=== PATIENT | female | born 1960 | race Caucasian/White ===

== ENCOUNTER 2024-02-11 08:49 | Outpatient (AMB) | payer MEDICARE, BC, SELFPAY ==
--- NOTE | 2024-02-11 08:50 | A.OFFPC_ITS ---
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 She recently moved to [facility]. She requested her medical records which have not yet been sent. Tried to obtain [employer] code today however would not process CV: On atorvastatin 20 mg daily. GI: On omeprazole 40mg daily. Stable COPD is stable on prn albuterol which she seldom has used. She does request referral to pulmonary Mammo 01/2024 Colonoscopy 2019 ROS CONSTITUTIONAL: Denies weight loss, fever and chills. HEENT: Denies changes in vision and hearing. RESPIRATORY: Denies SOB and cough. CV: Denies palpitations and CP GI: Denies abdominal pain, nausea, vomiting and diarrhea. : Denies dysuria and urinary frequency. MSK: Denies new myalgia and joint pain. SKIN: Denies rash and pruritus. NEUROLOGICAL: Denies headache PSYCHIATRIC: Denies recent changes in mood. PHYSICAL EXAM: GENERAL: Alert and oriented x 3. NAD EYES: EOMI. Anicteric. HENT: Moist mucous membranes. No scleral icterus. No cervical lymphadenopathy. LUNGS: Clear to auscultation bilaterally. CARDIOVASCULAR: Regular rate and rhythm. No murmur. No JVD. ABDOMEN: Soft, non-tender +bs EXTREMITIES: No edema. Non-tender. SKIN: No rashes or lesions. Warm. NEUROLOGIC: No focal neurological deficits. CN II-XII grossly intact PSYCHIATRIC: Cooperative. Appropriate mood and affect [facility] Surgical History H/O colonoscopy (~2019) History of carpal tunnel surgery History of lumpectomy of right breast (~2010) History of hysterectomy (~2015) H/O Spinal surgery (~2020) Family History Mother Breast cancer Father Diabetes Social History Household Members: None Housing: House Alcohol intake: current Alcohol intake frequency: a few times a month Patient Tobacco Use Status: Former Tobacco user Cigarettes Per Day: 10 Years Smoked: 50 e-Cigarette/Vaping Use: Never Used service: Yes Current occupational status: retired Cognitive needs: No Hearing needs: No Vision needs: No Questionnaire PHQ-9 Over the last 2 weeks, how often have you been bothered by any of the following problems? 1. Little interest or pleasure in doing things: not at all 2. Feeling down, depressed, or hopeless: not at all 3. Trouble falling or staying asleep, or sleeping too much: not at all 4. Feeling tired or having little energy: not at all 5. Poor appetite or overeating: not at all 6. Feeling bad about yourself - or that you are a failure or have let yourself or your family down: not at all 7. Trouble concentrating on things, such as reading the newspaper or watching television: not at all 8. Moving or speaking so slowly that other people could have noticed. Or the opposite - being so fidgety or restless that you have been moving around a lot more than usual: not at all 9. Thoughts that you would be better off or of hurting yourself in some way: not at all Total score: 0 Depression Screening Interpretation: Negative (neg) Depression Screening Done: Yes 01943 - PHQ-9 Billing: Yes Source: Developed by Drs. Walter Bajwa, Cheri Griffith, Pranav Tong and colleagues, with an educational felicia from [employer]. Thrive Questionnaire Date Thrive assessed: 02/11/24 I am a: Patient What is your living situation today?: I have a steady place to live Within the past 12 months, did the food you bought not last and you didn't have the money to get more?: Never true Within the past 12 months, did you worry whether your food would run out before you got money to buy more?: Never true Do you have trouble paying for medicines?: No Do you have trouble getting transportation to medical appointments?: No Do you have trouble paying your heating and electricity bill?: No Do you have trouble taking care of your child, family member or friend?: No Do you have trouble with day-to-day activities such as bathing, preparing meals, shopping, managing finances, etc.?: No Are you currently unemployed and looking for a job?: No Are you interested in more education?: No Please select the resources that you would like help with: None Currently or been in a relationship where the following occur: No concerns reported THRIVE Score: 0 AUDIT C Alcohol Use Questionnaire (AUDIT-C) 1. How often do you have a drink containing alcohol?: Monthly or less 2. How many drinks containing alcohol do you have on a typical day when you are drinking?: 1 or 2 3. How often do you have six or more drinks on one occasion?: Never Total Score: 1 INDU-7 AMB Questionnaire INDU-7 Date INDU - 7 assessed: 02/11/24 Feeling nervous, anxious, or on edge: 0 = Not at all Not being able to stop or control worryin = Not at all Worrying too much about different things: 0 = Not at all Trouble relaxin = Not at all Being so restless that it is hard to sit still: 0 = Not at all Feeling afraid as if something awful might happen: 0 = Not at all Source: Developed by Drs. Walter Bajwa, Cheri Griffith, Pranav Tong and colleagues, with an educational felicia from [employer]. Physical exam (Primary Care) Vital Signs: Last Vital Signs Pulse 65 02/11/24 08:51 BP 132/84 02/11/24 08:51 Pulse Ox 96 02/11/24 08:51 Oxygen Delivery Method Room Air 02/11/24 08:51 BMI result Body Mass Index 25.7 Tobacco/Smoking Status: Tobacco use Status Tobacco use date assessed 02/11/24 02/11/24 09:01 Patient Tobacco Use Status Former Tobacco user 02/11/24 09:01 e-Cigarette/Vaping Use Never Used 02/11/24 09:01 PHQ-9: PHQ-9 Score PHQ-9: Total score 0 02/11/24 09:01 Depression Screening Interpretation: Negative (neg) Thrive Assessment: Date of Thrive Assessment Date Thrive assessed 02/11/24 02/11/24 09:01 Currently or been in a relationship where the following occur: No concerns reported Assessment and Plan Assessment & Plan (1) Encounter to establish care: Code(s): Z76.89 - Persons encountering health services in other specified circumstances Plan: 63 y/o to establish care. Past medical, surgical, social and family history revewed. (2) Hyperlipidemia: Code(s): E78.5 - Hyperlipidemia, unspecified Qualifiers: Hyperlipidemia type: unspecified Qualified Code(s): E78.5 - Hyperlipidemia, unspecified (3) COPD (chronic obstructive pulmonary disease): Code(s): J44.9 - Chronic obstructive pulmonary disease, unspecified Qualifiers: COPD type: emphysema Emphysema type: other Qualified Code(s): J43.8 - Other emphysema Plan: referral placed to pulm Orders: Orders Comprehensive Met. Panel Today E78.5 - Hyperlipidemia, unspecified, R73.09 - Other abnormal glucose, Z13.0 - Encounter for screening for diseases of the blood and blood-forming organs and certain disorders involving the immune mechanism, Z13.228 - Encounter for screening for other metabolic disorders Lipid Panel Today E78.5 - Hyperlipidemia, unspecified, R73.09 - Other abnormal glucose, Z13.0 - Encounter for screening for diseases of the blood and blood- forming organs and certain disorders involving the immune mechanism, Z13.228 - Encounter for screening for other metabolic disorders Complete Blood Count Auto Diff Today E78.5 - Hyperlipidemia, unspecified, R73.09 - Other abnormal glucose, Z13.0 - Encounter for screening for diseases of the blood and blood-forming organs and certain disorders involving the immune mechanism, Z13.228 - Encounter for screening for other metabolic disorders Hemoglobin A1c Today E78.5 - Hyperlipidemia, unspecified, R73.09 - Other abnormal glucose, Z13.0 - Encounter for screening for diseases of the blood and blood-forming organs and certain disorders involving the immune mechanism, Z13.228 - Encounter for screening for other metabolic disorders Referrals Pulmonology Referral J44.9 - Chronic obstructive pulmonary disease, unspecified Medications: New albuterol sulfate 90 mcg/actuation (Ventolin HFA) 2 inhalations inhalation Q4H PRN 8.5 grams 3RF shortness of breath or wheezing omeprazole 40 mg PO DAILY 90 caps 3RF Coding Level of Care Code New Pt Level 4 (42628) Complex EM visit Add On G2211 Diagnoses Encounter to establish care Z76.89 Hyperlipidemia, unspecified hyperlipidemia type E78.5 Hyperlipidemia type: unspecified Other emphysema J43.8 COPD type: emphysema Emphysema type: other
[2024-02-11 08:51] VITALS: BP 132/84; PULSE 65; O2SAT 96; BMI 25.7
== END 2024-02-11 09:36 | disposition home or self-care (01) ==
PROVIDERS: PCP Internal Medicine; Visit Provider Internal Medicine
DX: Z76.89 Persons encountering health services in other specified circumstances (principal); E78.5 Hyperlipidemia, unspecified; J43.8 Other emphysema

== ENCOUNTER → 2024-02-11 08:49 | Outpatient (BNVA) | payer MEDICARE, BC, SELFPAY | PROVIDERS: Visit Provider Internal Medicine | DX: Z76.89 Persons encountering health services in other specified circumstances (principal); E78.5 Hyperlipidemia, unspecified; J43.8 Other emphysema | CPT/HCPCS: 96127; 99202 ==

== ENCOUNTER 2024-02-11 09:53 | Outpatient (REF) | payer MEDICARE, BC, SELFPAY ==
[2024-02-11 11:48] LABS: MANUAL DIFF FLAG NO
[2024-02-11 12:00] LABS: Basophils Absolute Auto 0.1 X10*3/uL (0.0-0.2); Basophils Percent Auto 1.8 % (0-2); Eosinophils Absolute Auto 0.1 X10*3/uL (0.0-0.4); Eosinophils Percent Auto 1.5 % (0-4); Hematocrit 45.2 % (37.0-47.0); Hemoglobin 15.3 g/dl (12.0-16.0); Imm Gran Abs Auto 0.03 X10*3/uL (0.00-0.03); Imm Gran Pct Auto 0.5 % (0.0-0.4); Lymphocytes Absolute Auto 2.3 X10*3/uL (1.2-4.9); Lymphocytes Percent Auto 35.4 % (20-40); Mean Corpuscular HGB Conc 33.8 g/dl (31.0-35.0); Mean Corpuscular Hemoglobin 31.2 pg (27.0-33.0); Mean Corpuscular Volume 92.2 fL (80.0-98.0); Monocytes Absolute Auto 0.7 X10*3/uL (0.1-1.2); Monocytes Percent Auto 10.3 % (2-11); Neutrophils Absolute Auto 3.3 x10*3/uL (2.0-8.3); Neutrophils Percent Auto 50.5 % (45-73); Platelet Count 201 X10*3/uL (160-400); Red Cell Distribution Width 13.2 % (11.0-16.0); White Blood Count 6.5 X10*3/uL (4.8-10.8)
[2024-02-11 12:23] LABS: Alanine Aminotransferase 22 U/L (0-31); Albumin Level 4.3 g/dL (3.5-5.0); Alkaline Phosphatase 108 U/L (39-117); Anion Gap 11 (12-20); Aspartate Amino Transferase 18 U/L (5-31); Bilirubin Total 0.5 mg/dL (0.0-1.0); Blood Urea Nitrogen 17 mg/dL (9-16); Calcium 9.7 mg/dL (8.4-10.2); Carbon Dioxide 26 mmol/L (22-29); Chloride 107 mmol/L (96-108); Cholesterol 184 mg/dL (<200); Estimated Glomerular Filt Rate > 60; Glucose Random 96 mg/dL (60-115); HDL Cholesterol 55 mg/dL (>40); LDL Cholesterol Calculated 95 mg/dL (<100); Potassium 4.2 mmol/L (3.3-5.1); Sodium 140 mmol/L (135-145); Total Protein 7.2 g/dL (6.5-8.0); Triglycerides 170 mg/dL (<150)
[2024-02-11 12:24] LABS: Estimated Average Glucose 117 mg/dL; Hemoglobin A1c % 5.7 % (<6.0)
== END 2024-02-11 09:54 | disposition home or self-care (01) ==
LOC: HO.WFDLDS 09:53
PROVIDERS: Visit Provider Internal Medicine
DX: R73.09 Other abnormal glucose (principal); Z13.0 Encounter for screening for diseases of the blood and blood-forming organs and certain disorders involving the immune mechanism; E78.5 Hyperlipidemia, unspecified; Z13.228 Encounter for screening for other metabolic disorders
CPT/HCPCS: 36415; 80053; 80061; 83036; 85025

== ENCOUNTER 2024-03-18 10:13 | Outpatient (AMB) | payer MEDICARE, BC, SELFPAY ==
[2024-03-18 10:15] VITALS: BP 124/68; PULSE 74; O2SAT 96; BMI 25.9
--- NOTE | 2024-03-18 10:15 | A.OFFVIS_ITS ---
Vital Signs 03/18/24 10:15 Height 5 ft 2 in Weight 141 lb 6 oz BMI 25.9 BP 124/68 Blood Pressure Location Rt brachial Position Sitting Pulse 74 Pulse Source Pulse Oximeter Pulse Oximetry (%) 96 Oxygen Delivery Method Room Air Intake Visit Reasons: COPD/Emphysema Allergies codeine Allergy (Intermediate, Verified 03/18/24 10:17) Rash HPI HPI COPD/Emphysema: Details: Mercedez Blanco is pleasant 63 year old female, current minimal smoker with 25+ pyh, with underlying COPD, emphysema, HLD and GERD. She was referred by PCP for pulmonary evaluation. She was previously under the care of pulmonary while living in [place] however has been without care for over one year. Prior she was using Anoro with good effect however it was not financially feasible and has not been on any inhalers since moving. She also had a LLL 5-6 mm pulmonary nodule that was being followed annually, last CT 05/05. She reports dyspnea with moderate exertion such as stairs and hills. She is quite active using a stationary bike 3x/week as well as walking frequently. She denies cough, wheezing or chest tightness. She does note occasionally orthopnea. Denies BLE edema or PND. Prior echo from 2020 revealed LVEF 60-65%, unable to determine RVSP, trace valvular regurgitation. She denies h/o asthma. She denies pertinent family history. She reports mild seasonal allergies. She denies any prolonged occupational exposures. [facility] Surgical History H/O colonoscopy (~2019) History of carpal tunnel surgery History of lumpectomy of right breast (~2010) History of hysterectomy (~2015) H/O Spinal surgery (~2020) Family History Mother Breast cancer Father Diabetes Social History Household Members: None Housing: House Alcohol intake: current Alcohol intake frequency: a few times a month Patient Tobacco Use Status: Former Tobacco user Cigarettes Per Day: 10 Years Smoked: 50 e-Cigarette/Vaping Use: Never Used service: Yes Current occupational status: retired Cognitive needs: No Hearing needs: No Vision needs: No Review of Systems Const Denies chills, Denies excessive sweating, Denies fever(s), Denies headache(s) and Denies night sweats Eyes Denies dry eyes, Denies irritation and Denies itchy eyes ENT Reports Normal hearing present, Denies headache(s), Denies nasal congestion, Denies nasal discharge, Denies post nasal drip and Denies sore throat Card Denies chest pain, Denies chest pain at rest, Denies chest pain with activity, Denies claudication, Denies leg edema, Denies orthopnea and Denies paroxysmal nocturnal dyspnea Resp Denies chest congestion, Denies cough, Denies excessive phlegm production, Denies pain on inspiration, Denies pain with cough, Denies stridor and Denies wheezing Musc Denies myalgias Neuro Reports Normal hearing present and Denies headache(s) Endo Denies excessive sweating Yaniv/Lymph Denies lymphadenopathy Aller/Immun Denies itchy eyes, Denies seasonal rhinorrhea and Denies wheezing Physical Exam Vital Signs: Last Vital Signs Pulse 74 03/18/24 10:15 BP 124/68 03/18/24 10:15 Pulse Ox 96 03/18/24 10:15 Oxygen Delivery Method Room Air 03/18/24 10:15 BMI result Body Mass Index 25.9 Const General: cooperative, healthy appearing, comfortable, no acute distress, well developed and alert Orientation/consciousness: patient oriented x3 Limitations: no limitations HEENT Head: Yes normal to inspection, Yes normocephalic and Yes atraumatic Ears: hearing grossly normal bilaterally and external ears normal Eyes General: appearance normal, both eyes and all related structures Eyelids: Yes eyelids normal Sclerae: sclerae normal EOM: EOMs intact bilaterally Neck Neck: Yes normal visual inspection and Yes no lymphadenopathy Lymphatic: no lymphadenopathy noted Chest Chest palpation & inspection: normal inspection of the chest Resp Effort & Inspection: normal respiratory effort, able to speak in complete sentences, no audible wheezes, no cough, no stridor, not tachypneic, no tripod positioning and no use of accessory muscles Auscultation: clear to auscultation bilaterally Cardio Jugular venous distension: no JVD Rate: regular rate Rhythm: regular rhythm Skin Other: warm, dry General skin exam: no rashes or lesions noted Neuro General: patient oriented x3 Cranial nerves: Yes Normal hearing present Cognition (Neuro): normal cognition Gait exam (Neuro): Normal gait present Extrem General: Yes normal to inspection, Yes capillary refill normal, Yes no clubbing, cyanosis or edema and Yes no pedal edema Psych Appearance: grossly normal and well kempt Speech and movement: Normal speech and movement present and Clear speech present Affect: normal affect Attitude: cooperative Thought process: Normal thought process present Thought content: Normal thought content present Insight: Good insight present (Psych) Judgement: Good judgement present (Psych) Assessment & Plan Assessment & Plan (1) COPD (chronic obstructive pulmonary disease): Code(s): J44.9 - Chronic obstructive pulmonary disease, unspecified Category: Medical Qualifiers: COPD type: emphysema Emphysema type: other Qualified Code(s): J43.8 - Other emphysema (2) Pulmonary nodule: Code(s): R91.1 - Solitary pulmonary nodule Category: Medical (3) Nicotine dependence, cigarettes, uncomplicated: Code(s): F17.210 - Nicotine dependence, cigarettes, uncomplicated Category: Medical Plan Mercedez Blanco's symptoms are likely related to underlying COPD. Prior PFT revealed mild obstructive defect with moderate decrease in DLCO. Will trial Symbicort. Discussed importance of good oral hygiene to prevent thrush. Will send for repeat chest CT to assess stability of LLL pulmonary nodule. Discussed smoking cessation, patient continues to smoke however minimally. All questions were answered and patient is in agreement of plan. Will follow up in 6-8 weeks or sooner if needed. Orders: Orders CT chest wo IV con Today F17.210 - Nicotine dependence, cigarettes, uncomplicated, R91.1 - Solitary pulmonary nodule Medications: New budesonide-formoterol 80-4.5 mcg/actuation (Symbicort) 2 puffs inhalation Q12H 10.2 grams 6RF Coding Level of Care Code New Pt Level 4 (14508) Diagnoses Other emphysema J43.8 COPD type: emphysema Emphysema type: other Pulmonary nodule R91.1 Nicotine dependence, cigarettes, uncomplicated F17.210
== END 2024-03-18 10:51 | disposition home or self-care (01) ==
LOC: HO.HPSW 10:13
PROVIDERS: PCP Internal Medicine; Referring Provider Internal Medicine; Visit Provider Nurse Practitioner Family
DX: J43.8 Other emphysema (principal); R91.1 Solitary pulmonary nodule; F17.210 Nicotine dependence, cigarettes, uncomplicated
CPT/HCPCS: 99204

== ENCOUNTER → 2024-03-18 10:13 | Outpatient (BNVA) | payer MEDICARE, BC, SELFPAY | PROVIDERS: PCP Internal Medicine; Referring Provider Internal Medicine; Visit Provider Nurse Practitioner Family | DX: J43.8 Other emphysema (principal); R91.1 Solitary pulmonary nodule; F17.210 Nicotine dependence, cigarettes, uncomplicated | CPT/HCPCS: 99202 ==

== ENCOUNTER 2024-05-09 14:54 | Outpatient (REF) | payer MEDICARE, BC, SELFPAY ==
--- NOTE | ~2024-05-09 | CT_ITS ---
CLINICAL HISTORY: R91.1 - Solitary pulmonary nodule CT chest without IV contrast. COMPARISON: CT chest dated 04/25/23 at 15:01 EST FINDINGS: Visualized thyroid is unremarkable. No supraclavicular or axillary lymphadenopathy. Bilateral breast implants present. Ascending aorta and main pulmonary artery are normal in caliber. Small pericardial effusion, stable. Normal esophagus. No mediastinal lymphadenopathy. No pleural effusion. No consolidation. Mild osteophyte fibrosis along the medial right lung base, stable. Moderate upper lobe predominant centrilobular emphysema. Trachea and central airways are clear. No significant bronchial wall thickening. No bronchiectasis. No pulmonary nodule identified. Visualized portions of the upper abdomen are unremarkable. Flowing marginal osteophytes present along the midthoracic spine. Partially visualized anterior cervical fusion hardware. No acute fracture or suspicious bone lesion identified. IMPRESSION: 1. No acute intrathoracic findings. No pulmonary nodule identified. This document has been electronically signed by: Jericho Abernathy MD on 05/12/2024 16:30:08
== END 2024-05-09 14:55 | disposition home or self-care (01) ==
LOC: HO.CT 14:54
PROVIDERS: PCP Internal Medicine; Visit Provider Nurse Practitioner Family
DX: R91.1 Solitary pulmonary nodule (principal); F17.210 Nicotine dependence, cigarettes, uncomplicated
CPT/HCPCS: 71250

== ENCOUNTER → 2024-05-09 14:55 | Outpatient (BNV) | payer MEDICARE, BC, SELFPAY | PROVIDERS: PCP Internal Medicine; Visit Provider Radiology Diagnostic Radiology | DX: J43.2 Centrilobular emphysema (principal); I31.39 Other pericardial effusion (noninflammatory); Z98.82 Breast implant status | CPT/HCPCS: 71250 ==

== ENCOUNTER 2024-05-16 09:42 | Outpatient (AMB) | payer BC, MEDICARE, SELFPAY ==
--- NOTE | 2024-05-16 09:45 | MHC.OFFVIS ---
Vital Signs 05/16/24 09:46 Height 5 ft 2 in Weight 144 lb BMI 26.3 BP 110/78 Blood Pressure Location Rt brachial Position Sitting Pulse 84 Pulse Source Pulse Oximeter Pulse Oximetry (%) 98 Oxygen Delivery Method Room Air Intake Visit Reasons: copd/emphysema Allergies codeine Allergy (Intermediate, Verified 05/16/24 09:49) Rash HPI HPI copd/emphysema: Details: Mercedez Blanco is pleasant 63 year old female, current minimal smoker with 25+ pyh, with underlying COPD, emphysema, HLD and GERD. At the last visit, she was started on Symbicort 80mcg with good effect. At baseline, she denies any cough, wheezing,. dyspnea or chest tightness and continues to be quite active. She denies any need for albuterol MDI. She also had a LLL 5-6 mm pulmonary nodule that was being followed annually, last CT 05/05 and presents today for review of repeat chest CT. She denies any visits to urgent care or hospitalizations related to respiratory distress since the last visit. She does note that over the last two days she has developed sinus symptoms, with productive cough that started this am, clear sputum and no change in dyspnea, wheezing or chest tightness. She denies chest congestion, fever or chills. She was exposed to her sister on [place] who had an URI. [facility] Surgical History H/O colonoscopy (~2019) History of carpal tunnel surgery History of lumpectomy of right breast (~2010) History of hysterectomy (~2015) H/O Spinal surgery (~2020) Family History Mother Breast cancer Father Diabetes Social History Household Members: None Housing: House Alcohol intake: current Alcohol intake frequency: a few times a month Patient Tobacco Use Status: Former Tobacco user Cigarettes Per Day: 10 Years Smoked: 50 e-Cigarette/Vaping Use: Never Used service: Yes Current occupational status: retired Cognitive needs: No Hearing needs: No Vision needs: No Review of Systems Const Denies chills, Denies excessive sweating, Denies fever(s), Reports headache(s) and Denies night sweats Eyes Denies dry eyes, Denies irritation and Denies itchy eyes ENT Reports Normal hearing present, Reports headache(s), Denies nasal congestion, Denies nasal discharge, Denies post nasal drip, Reports sinus pressure and Denies sore throat Card Denies chest pain, Denies chest pain at rest, Denies chest pain with activity, Denies claudication, Denies leg edema, Denies dyspnea, Denies dyspnea on exertion, Denies orthopnea and Denies paroxysmal nocturnal dyspnea Resp Denies chest congestion, Denies excessive phlegm production, Denies pain on inspiration, Denies pain with cough, Denies dyspnea, Denies dyspnea on exertion, Denies stridor and Denies wheezing Musc Denies myalgias Neuro Reports Normal hearing present and Reports headache(s) Endo Denies excessive sweating Yaniv/Lymph Denies lymphadenopathy Aller/Immun Denies itchy eyes, Denies seasonal rhinorrhea and Denies wheezing Physical Exam Vital Signs: BMI result Body Mass Index 26.3 Const General: cooperative, healthy appearing, comfortable, no acute distress, well developed and alert Orientation/consciousness: patient oriented x3 Limitations: no limitations HEENT Head: Yes normal to inspection, Yes normocephalic and Yes atraumatic Ears: hearing grossly normal bilaterally and external ears normal Eyes General: appearance normal, both eyes and all related structures Eyelids: Yes eyelids normal Sclerae: sclerae normal EOM: EOMs intact bilaterally Neck Neck: Yes normal visual inspection and Yes no lymphadenopathy Lymphatic: no lymphadenopathy noted Chest Chest palpation & inspection: normal inspection of the chest Resp Effort & Inspection: normal respiratory effort, able to speak in complete sentences, no audible wheezes, no cough, no stridor, not tachypneic, no tripod positioning and no use of accessory muscles Auscultation: clear to auscultation bilaterally Cardio Jugular venous distension: no JVD Rate: regular rate Rhythm: regular rhythm Skin Other: warm, dry General skin exam: no rashes or lesions noted Neuro General: patient oriented x3 Cranial nerves: Yes Normal hearing present Cognition (Neuro): normal cognition Gait exam (Neuro): Normal gait present Extrem General: Yes normal to inspection, Yes capillary refill normal, Yes no clubbing, cyanosis or edema and Yes no pedal edema Psych Appearance: grossly normal and well kempt Speech and movement: Normal speech and movement present and Clear speech present Affect: normal affect Attitude: cooperative Thought process: Normal thought process present Thought content: Normal thought content present Insight: Good insight present (Psych) Judgement: Good judgement present (Psych) Assessment & Plan Assessment & Plan (1) COPD (chronic obstructive pulmonary disease): Code(s): J44.9 - Chronic obstructive pulmonary disease, unspecified Category: Medical Qualifiers: COPD type: emphysema Emphysema type: other Qualified Code(s): J43.8 - Other emphysema (2) Pulmonary nodule: Code(s): R91.1 - Solitary pulmonary nodule Category: Medical (3) Nicotine dependence, cigarettes, uncomplicated: Code(s): F17.210 - Nicotine dependence, cigarettes, uncomplicated Category: Medical Plan Advised Mercedez Blanco to call if symptoms progress, likely viral at this time. If symptoms worsen, will call office. Encouraged increased fluid intake as well as Mucinex DM. She reports doing well on Symbicort and albuterol MDI, advised to continue. Reviewed chest CT which was unremarkable, no change to LLL pulmonary nodule, 5 mm. Will repeat in one year to assess stability. Discussed smoking cessation, patient motivated to quit on own. All questions were answered and patient is in agreement of plan. Will follow up in 3 months or sooner if needed. Orders: Orders CT chest wo IV con 11 Months F1.210 - Nicotine dependence, cigarettes, uncomplicated, R91.1 - Solitary pulmonary nodule Coding Level of Care Code Est Pt Level 4 (94498) Diagnoses Other emphysema J43.8 COPD type: emphysema Emphysema type: other Pulmonary nodule R91.1 Nicotine dependence, cigarettes, uncomplicated .
[2024-05-16 09:46] VITALS: BP 110/78; PULSE 84; O2SAT 98; BMI 26.3
== END 2024-05-16 10:07 | disposition home or self-care (01) ==
PROVIDERS: PCP Internal Medicine; Visit Provider Nurse Practitioner Family
DX: J43.8 Other emphysema (principal); R91.1 Solitary pulmonary nodule; F17.210 Nicotine dependence, cigarettes, uncomplicated
CPT/HCPCS: 99214

== ENCOUNTER 2024-08-15 09:35 | Outpatient (AMB) | payer MEDICARE, BC, SELFPAY ==
--- NOTE | 2024-08-15 09:40 | MHC.OFFVIS ---
Vital Signs 08/15/24 09:41 Height 5 ft 2 in Weight 147 lb BMI 26.9 BP 120/64 Blood Pressure Location Rt brachial Position Sitting Pulse 89 Pulse Source Pulse Oximeter Pulse Oximetry (%) 98 Oxygen Delivery Method Room Air Intake Visit Reasons: copd/emphysema Patient Care Secretary Required: No Project Management Intern: Project Management Intern offered & declined Accompanied by: Self / Same As Patient Allergies codeine Allergy (Intermediate, Verified 08/15/24 09:45) Rash Medication List - Last Reconciled 08/15/24 by Henny Parker LPN albuterol sulfate 90 mcg/actuation (Ventolin HFA) 2 inhalations inhalation Q4H PRN atorvastatin 20 mg PO BEDTIME budesonide-formoterol 80-4.5 mcg/actuation (Symbicort) 2 puffs inhalation Q12H omeprazole 40 mg PO DAILY HPI HPI copd/emphysema: Details: Mercedez Blanco is pleasant 63 year old female, former 25+ pyh, recently quit 3 weeks ago with underlying mild COPD, emphysema, HLD and GERD. She reports suboptimal control with Symbicort 80mcg, continuing with dyspnea on exertion, productive cough and intermittent wheezing. Of note, she does report roxanne the flu two weeks ago initially with significan sinus symptoms however minimal change in respiratory symptoms and feels she is recovering back to baseline. She denies any visits to urgent care or hospitalizations related to respiratory distress since the last visit. [facility] Surgical History H/O colonoscopy (~2019) History of carpal tunnel surgery History of lumpectomy of right breast (~2010) History of hysterectomy (~2015) H/O Spinal surgery (~2020) Family History Mother Breast cancer Father Diabetes Social History Household Members: None Housing: House Alcohol intake: current Alcohol intake frequency: a few times a month Patient Tobacco Use Status: Former Tobacco user Cigarettes Per Day: 10 Years Smoked: 50 e-Cigarette/Vaping Use: Never Used service: Yes Current occupational status: retired Cognitive needs: No Hearing needs: No Vision needs: No Review of Systems Const Denies chills, Denies excessive sweating, Denies fever(s) and Denies night sweats Eyes Denies dry eyes, Denies irritation and Denies itchy eyes ENT Reports Normal hearing present, Denies nasal congestion, Denies nasal discharge, Denies post nasal drip and Denies sore throat Card Denies chest pain, Denies chest pain at rest, Denies chest pain with activity, Denies claudication, Denies leg edema, Reports dyspnea on exertion, Denies orthopnea and Denies paroxysmal nocturnal dyspnea Resp Denies change in phlegm color, Denies chest congestion, Denies hemoptysis, Denies excessive phlegm production, Denies pain on inspiration, Denies pain with cough, Reports dyspnea on exertion, Denies stridor and Reports wheezing Musc Denies myalgias Neuro Reports Normal hearing present Endo Denies excessive sweating Yaniv/Lymph Denies lymphadenopathy Aller/Immun Denies itchy eyes, Denies seasonal rhinorrhea and Reports wheezing Physical Exam Vital Signs: BMI result Body Mass Index 26.9 Const General: cooperative, healthy appearing, comfortable, no acute distress, well developed and alert Orientation/consciousness: patient oriented x3 Limitations: no limitations HEENT Head: Yes normal to inspection, Yes normocephalic and Yes atraumatic Ears: hearing grossly normal bilaterally and external ears normal Eyes General: appearance normal, both eyes and all related structures Eyelids: Yes eyelids normal Sclerae: sclerae normal EOM: EOMs intact bilaterally Neck Neck: Yes normal visual inspection and Yes no lymphadenopathy Lymphatic: no lymphadenopathy noted Chest Chest palpation & inspection: normal inspection of the chest Resp Effort & Inspection: normal respiratory effort, able to speak in complete sentences, no audible wheezes, no cough, no stridor, not tachypneic, no tripod positioning and no use of accessory muscles Auscultation: clear to auscultation bilaterally Cardio Jugular venous distension: no JVD Rate: regular rate Rhythm: regular rhythm Skin Other: warm, dry General skin exam: no rashes or lesions noted Neuro General: patient oriented x3 Cranial nerves: Yes Normal hearing present Cognition (Neuro): normal cognition Gait exam (Neuro): Normal gait present Extrem General: Yes normal to inspection, Yes capillary refill normal, Yes no clubbing, cyanosis or edema and Yes no pedal edema Psych Appearance: grossly normal and well kempt Speech and movement: Normal speech and movement present and Clear speech present Affect: normal affect Attitude: cooperative Thought process: Normal thought process present Thought content: Normal thought content present Insight: Good insight present (Psych) Judgement: Good judgement present (Psych) Assessment & Plan Assessment & Plan (1) COPD (chronic obstructive pulmonary disease): Code(s): J44.9 - Chronic obstructive pulmonary disease, unspecified Category: Medical Qualifiers: COPD type: emphysema Emphysema type: other Qualified Code(s): J43.8 - Other emphysema (2) Pulmonary nodule: Code(s): R91.1 - Solitary pulmonary nodule Category: Medical (3) Nicotine dependence, cigarettes, uncomplicated: Code(s): F17.210 - Nicotine dependence, cigarettes, uncomplicated Category: Medical Plan Mercedez Blanco reports suboptimal control with Symbicort 80 mcg, will increase to 160mcg. If no notable improvements, will consider Trelegy. Smoking cessation reviewed and patient has been without a cigarette x 3 weeks, and motivated to continue. Prior chest CT revealed stable LLL pulmonary nodule, 5 mm, scheduled for repeat in one year to assess stability, 04/2025. All questions were answered and patient is in agreement of plan. Will follow up in 2-3 months or sooner if needed. Medications: New budesonide-formoterol 160-4.5 mcg/actuation (Symbicort) 2 puffs inhalation Q12H 10.2 grams 3RF Discontinued budesonide-formoterol 80-4.5 mcg/actuation (Symbicort) Discontinued Reason: Patient Completed Course 2 puffs inhalation Q12H 10.2 grams 6RF Coding Level of Care Code Est Pt Level 4 (75914) Diagnoses Other emphysema J43.8 COPD type: emphysema Emphysema type: other Pulmonary nodule R91.1 Nicotine dependence, cigarettes, uncomplicated F17.210
[2024-08-15 09:41] VITALS: BP 120/64; PULSE 89; O2SAT 98; BMI 26.9
== END 2024-08-15 09:59 | disposition home or self-care (01) ==
PROVIDERS: PCP Internal Medicine; Visit Provider Nurse Practitioner Family
DX: J43.8 Other emphysema (principal); R91.1 Solitary pulmonary nodule; F17.210 Nicotine dependence, cigarettes, uncomplicated
CPT/HCPCS: 99214

== ENCOUNTER → 2024-08-15 09:35 | Outpatient (BNVA) | payer BC, MEDICARE, SELFPAY | PROVIDERS: PCP Internal Medicine; Visit Provider Nurse Practitioner Family | DX: J43.8 Other emphysema (principal); R91.1 Solitary pulmonary nodule; F17.210 Nicotine dependence, cigarettes, uncomplicated | CPT/HCPCS: 99212 ==

== ENCOUNTER 2024-09-09 08:20 | Outpatient (AMB) | payer MEDICARE, BC, SELFPAY ==
--- NOTE | 2024-09-09 08:37 | MHC.PC.OV ---
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 She recently moved to [place] from [place], last seen to establish care CV: On atorvastatin 20 mg daily. GI: On omeprazole 40mg daily. Stable COPD: Following with pulmonology. On symbicort, prn albuterol which she seldom has used. 2020-Fusion cervical spine. Increased neck and low back pain Mammo 01/2024 Colonoscopy 2019 ROS CONSTITUTIONAL: Denies weight loss, fever and chills. HEENT: Denies changes in vision and hearing. RESPIRATORY: Denies SOB and cough. CV: Denies palpitations and CP GI: Denies abdominal pain, nausea, vomiting and diarrhea. : Denies dysuria and urinary frequency. MSK: Denies new myalgia and joint pain. SKIN: Denies rash and pruritus. NEUROLOGICAL: Denies headache PSYCHIATRIC: Denies recent changes in mood. PHYSICAL EXAM: GENERAL: Alert and oriented x 3. NAD EYES: EOMI. Anicteric. HENT: Moist mucous membranes. No scleral icterus. No cervical lymphadenopathy. LUNGS: Clear to auscultation bilaterally. CARDIOVASCULAR: Regular rate and rhythm. No murmur. No JVD. ABDOMEN: Soft, non-tender +bs EXTREMITIES: No edema. Non-tender. SKIN: No rashes or lesions. Warm. NEUROLOGIC: No focal neurological deficits. CN II-XII grossly intact PSYCHIATRIC: Cooperative. Appropriate mood and affect [facility] Surgical History H/O colonoscopy (~2019) History of carpal tunnel surgery History of lumpectomy of right breast (~2010) History of hysterectomy (~2015) H/O Spinal surgery (~2020) Family History Mother Breast cancer Father Diabetes Social History Household Members: None Housing: House Alcohol intake: current Alcohol intake frequency: a few times a month Patient Tobacco Use Status: Former Tobacco user Cigarettes Per Day: 10 Years Smoked: 50 e-Cigarette/Vaping Use: Never Used service: Yes Current occupational status: retired Cognitive needs: No Hearing needs: No Vision needs: No Questionnaire PHQ-9 Over the last 2 weeks, how often have you been bothered by any of the following problems? 1. Little interest or pleasure in doing things: not at all 2. Feeling down, depressed, or hopeless: not at all 3. Trouble falling or staying asleep, or sleeping too much: not at all 4. Feeling tired or having little energy: several days 5. Poor appetite or overeating: not at all 6. Feeling bad about yourself - or that you are a failure or have let yourself or your family down: not at all 7. Trouble concentrating on things, such as reading the newspaper or watching television: not at all 8. Moving or speaking so slowly that other people could have noticed. Or the opposite - being so fidgety or restless that you have been moving around a lot more than usual: not at all 9. Thoughts that you would be better off or of hurting yourself in some way: not at all Total score: 1 Depression Screening Interpretation: Negative Depression Screening Done: Yes 53506 - PHQ-9 Billing: Yes Source: Developed by Drs. Walter Bajwa, Cheri Griffith, Pranav Tong and colleagues, with an educational felicia from [employer]. Thrive Questionnaire Date Thrive assessed: 02/11/24 I am a: Patient What is your living situation today?: I have a steady place to live Within the past 12 months, did the food you bought not last and you didn't have the money to get more?: Never true Within the past 12 months, did you worry whether your food would run out before you got money to buy more?: Never true Do you have trouble paying for medicines?: No Do you have trouble getting transportation to medical appointments?: No Do you have trouble paying your heating and electricity bill?: No Do you have trouble taking care of your child, family member or friend?: No Do you have trouble with day-to-day activities such as bathing, preparing meals, shopping, managing finances, etc.?: No Are you currently unemployed and looking for a job?: No Are you interested in more education?: No Please select the resources that you would like help with: None Currently or been in a relationship where the following occur: No concerns reported THRIVE Score: 0 AUDIT C Alcohol Use Questionnaire (AUDIT-C) 1. How often do you have a drink containing alcohol?: Monthly or less 2. How many drinks containing alcohol do you have on a typical day when you are drinking?: 1 or 2 3. How often do you have six or more drinks on one occasion?: Never Total Score: 1 INDU-7 AMB Questionnaire INDU-7 Date INDU - 7 assessed: 02/11/24 Feeling nervous, anxious, or on edge: 0 = Not at all Not being able to stop or control worryin = Not at all Worrying too much about different things: 0 = Not at all Trouble relaxin = Not at all Being so restless that it is hard to sit still: 0 = Not at all Becoming easily annoyed or irritable: 0 = Not at all Feeling afraid as if something awful might happen: 0 = Not at all Total INDU-7 score (0-4 normal; 5-9 mild; 10-14 moderate; 15-21 severe): 0 Source: Developed by Drs. Walter Bajwa, Cheri Griffith, Pranav Tong and colleagues, with an educational felicia from [employer]. Physical exam (Primary Care) Vital Signs: Last Vital Signs Pulse 84 09/09/24 08:38 Resp 12 09/09/24 08:38 BP 126/76 09/09/24 08:38 Pulse Ox 98 09/09/24 08:38 Oxygen Delivery Method Room Air 09/09/24 08:38 BMI result Body Mass Index 26.5 Tobacco/Smoking Status: Tobacco use Status Tobacco use date assessed 09/09/24 09/09/24 08:41 Patient Tobacco Use Status Former Tobacco user 09/09/24 08:41 e-Cigarette/Vaping Use Never Used 09/09/24 08:41 PHQ-9: PHQ-9 Score PHQ-9: Total score 1 09/15/24 11:18 Depression Screening Interpretation: Negative Thrive Assessment: Date of Thrive Assessment Date Thrive assessed 02/11/24 09/09/24 08:41 Currently or been in a relationship where the following occur: No concerns reported Coding Level of Care Code Est Pt Prev Care 40-64y(71111) Diagnoses Physical exam Z00.00 Other emphysema J43.8 COPD type: emphysema Emphysema type: other Hyperlipidemia, unspecified hyperlipidemia type E78.5 Hyperlipidemia type: unspecified History of lumpectomy of right breast Z98.890 Bilateral low back pain, unspecified chronicity, unspecified whether sciatica present M54.50 Back pain laterality: bilateral Chronicity: unspecified Sciatica presence: unspecified whether sciatica present Neck pain M54.2 Additional Codes PHQ-9 - 12085 - PHQ-9 Billing: Yes ([id number]) Assessment & Plan Assessment & Plan (1) Physical exam: Code(s): Z00.00 - Encounter for general adult medical examination without abnormal findings Category: Medical (2) COPD (chronic obstructive pulmonary disease): Code(s): J44.9 - Chronic obstructive pulmonary disease, unspecified Category: Medical Qualifiers: COPD type: emphysema Emphysema type: other Qualified Code(s): J43.8 - Other emphysema (3) Hyperlipidemia: Code(s): E78.5 - Hyperlipidemia, unspecified Category: Medical Qualifiers: Hyperlipidemia type: unspecified Qualified Code(s): E78.5 - Hyperlipidemia, unspecified (4) History of lumpectomy of right breast: Onset Date: Code(s): Z98.890 - Other specified postprocedural states Category: Surgical (5) Low back pain: Code(s): M54.50 - Low back pain, unspecified Category: Medical Qualifiers: Back pain laterality: bilateral Chronicity: unspecified Sciatica presence: unspecified whether sciatica present Qualified Code(s): M54.50 - Low back pain, unspecified (6) Neck pain: Code(s): M54.2 - Cervicalgia Category: Medical Plan Physical Exam Interval history reviewed Preventive measures for age discussed Xrays cervical and lumbar spine-referral to orthopedic spine obgyn referral Orders: Orders XR cervical spine 4V 09/12/24 M54.2 - Cervicalgia, M54.50 - Low back pain, unspecified, Z98.890 - Other specified postprocedural states XR lumbar spine 2-3V 09/12/24 M54.2 - Cervicalgia, M54.50 - Low back pain, unspecified, Z98.890 - Other specified postprocedural states Referrals Orthopedics Referral M54.2 - Cervicalgia, M54.50 - Low back pain, unspecified 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
[2024-09-09 08:38] VITALS: BP 126/76; PULSE 84; RESP 12; O2SAT 98; BMI 26.5
== END 2024-09-09 09:11 | disposition home or self-care (01) ==
PROVIDERS: PCP Internal Medicine; Visit Provider Internal Medicine
DX: Z00.00 Encounter for general adult medical examination without abnormal findings (principal); J43.8 Other emphysema; E78.5 Hyperlipidemia, unspecified; Z98.890 Other specified postprocedural states; M54.50 Low back pain, unspecified; M54.2 Cervicalgia

== ENCOUNTER → 2024-09-09 08:20 | Outpatient (BNVA) | payer MEDICARE, BC, SELFPAY | PROVIDERS: Visit Provider Internal Medicine | DX: Z00.00 Encounter for general adult medical examination without abnormal findings (principal); J43.8 Other emphysema; M54.50 Low back pain, unspecified; E78.5 Hyperlipidemia, unspecified; M54.2 Cervicalgia; Z98.890 Other specified postprocedural states | CPT/HCPCS: 96127; 99396 ==

== ENCOUNTER 2024-09-12 09:38 | Outpatient (REF) | payer MEDICARE, BC, SELFPAY ==
--- NOTE | ~2024-09-12 | XR_ITS ---
EXAMINATION: XR CERVICAL SPINE CLINICAL INFORMATION: Z98.890 - Other specified postprocedural states COMPARISON: None available. TECHNIQUE: 4 views of the cervical spine, inclusive of bilateral oblique views, were obtained. FINDINGS: There is no scoliosis. There is normal cervical lordosis. Normal bone mineralization. Craniocervical junction and C1-2 articulation intact and normally aligned. There has been prior anterior fusion of C5-6 and C6-7 with splaying and screw fixation, and interbody disc grafts. There is complete bony fusion through the disc spaces. The hardware appears intact, well seated, without loosening. There is normal alignment of the cervical spine without subluxation. Moderate disc degeneration present C3-4 and C4-5, with milder changes at C7-T1. There are bulky ventral vertebral osteophytes spanning C4-5, features suggestive of DISH. Normal facet alignment with mild multilevel degenerative facet changes. Oblique views demonstrate mild neural foraminal narrowing on the right C5-6 and C6-7, and moderate left C5-6 neural foraminal narrowing. There is no prevertebral or paravertebral soft tissue abnormality. Lung apices are clear. XR/XR cervical spine 4V IMPRESSION: 1. There is fusion of C5-6 and C6-7 without complication evident. There is bony fusion through the disc spaces. 2. There is mild to moderate spondylosis of the nonsurgical levels. 3. Moderate left and mild right C5-6 neural foraminal narrowing. 4. There is normal alignment without subluxation. Electronically signed by: Anthony Rudolph MD 09/12/2024 02:24 PM EDT
--- NOTE | ~2024-09-12 | XR_ITS ---
EXAMINATION: XR LUMBOSACRAL SPINE CLINICAL INFORMATION: Z98.890 - Other specified postprocedural states ; back pain. COMPARISON: None available. TECHNIQUE: Three views of the lumbosacral spine. FINDINGS: No scoliosis. Normal lordosis. No fracture, compression deformity, or suspicious bone lesion, or subluxation. Moderate to severe disc degeneration L5-S1. There is otherwise only mild disc degeneration at the levels above L5. Mild to moderate degenerative facet changes spanning L3-S1. Normal facet alignment. Sacrum intact. SI joints appear normal. Soft tissues demonstrate vascular calcifications but are otherwise normal. XR/XR lumbar spine 2-3V IMPRESSION: 1. No acute bony abnormalities. 2. Mild to moderate spondylosis of the lumbar spine most significant at L5-S1. Electronically signed by: Anthony Rudolph MD 09/12/2024 02:18 PM EDT
== END 2024-09-12 09:39 | disposition home or self-care (01) ==
LOC: HO.HMGCX 09:38
PROVIDERS: PCP Internal Medicine; Visit Provider Internal Medicine
DX: M54.2 Cervicalgia (principal); M54.50 Low back pain, unspecified; Z98.890 Other specified postprocedural states
CPT/HCPCS: 72050; 72100

== ENCOUNTER → 2024-09-12 09:43 | Outpatient (BNV) | payer MEDICARE, BC, SELFPAY | PROVIDERS: PCP Internal Medicine; Visit Provider Radiology Diagnostic Radiology | DX: M47.812 Spondylosis without myelopathy or radiculopathy, cervical region (principal); M47.816 Spondylosis without myelopathy or radiculopathy, lumbar region | CPT/HCPCS: 72050; 72100 ==

== ENCOUNTER 2025-02-10 11:41 | Outpatient (AMB) | payer MEDICARE, BC, SELFPAY ==
--- NOTE | 2025-02-10 11:46 | A.OFFVIS_ITS ---
Vital Signs 3 02/10/25 11:47 Height 5 ft 2 in Weight 145 lb 2 oz BMI 26.5 BP 108/70 Blood Pressure Location Rt brachial Position Sitting Pulse 81 Pulse Source Pulse Oximeter Pulse Oximetry (%) 96 Oxygen Delivery Method Room Air Intake Visit Reasons: copd/emphysema Allergies codeine Allergy (Intermediate, Verified 02/10/25 11:49) Rash HPI HPI copd/emphysema: Details: Mercedez Blanco is pleasant 64 year old female, current minimal smoker with 25+ pyh, with underlying mild COPD, emphysema, HLD and GERD. She reports good control of respiratory symptoms on current regimen of Symbicort 160 mcg, rarely requiring albuterol MDI. She denies any visits to urgent care or hospitalizations related to respiratory distress since the last visit. Prior chest CT 05/06 revealed emphysematous changes with a stable LLL approximately 5 mm nodule and is scheduled for one year follow up 05/07 to assess stability given smoking history, PFSH Surgical History H/O colonoscopy (~2019) History of carpal tunnel surgery History of lumpectomy of right breast (~2010) History of hysterectomy (~2015) H/O Spinal surgery (~2020) Family History Mother Breast cancer Father Diabetes Social History Household Members: None Housing: House Alcohol intake: current Alcohol intake frequency: a few times a month Patient Tobacco Use Status: Former Tobacco user Cigarettes Per Day: 10 Years Smoked: 50 e-Cigarette/Vaping Use: Never Used service: Yes Current occupational status: retired Cognitive needs: No Hearing needs: No Vision needs: No Review of Systems Const Denies chills, Denies excessive sweating, Denies fever(s), Denies headache(s) and Denies night sweats Eyes Denies dry eyes, Denies irritation and Denies itchy eyes ENT Reports Normal hearing present, Denies headache(s), Denies nasal congestion, Denies nasal discharge, Denies post nasal drip and Denies sore throat Card Denies chest pain, Denies chest pain at rest, Denies chest pain with activity, Denies claudication, Denies leg edema, Denies dyspnea, Denies dyspnea on exertion, Denies orthopnea and Denies paroxysmal nocturnal dyspnea Resp Denies chest congestion, Denies cough, Denies excessive phlegm production, Denies pain on inspiration, Denies pain with cough, Denies dyspnea, Denies dyspnea on exertion, Denies stridor and Denies wheezing Musc Denies myalgias Neuro Reports Normal hearing present and Denies headache(s) Endo Denies excessive sweating Yaniv/Lymph Denies lymphadenopathy Aller/Immun Denies itchy eyes, Denies seasonal rhinorrhea and Denies wheezing Physical Exam Vital Signs: Last Vital Signs Pulse 81 02/10/25 11:47 BP 108/70 02/10/25 11:47 Pulse Ox 96 02/10/25 11:47 Oxygen Delivery Method Room Air 02/10/25 11:47 BMI result Body Mass Index 26.5 Const General: cooperative, healthy appearing, comfortable, no acute distress, well developed and alert Orientation/consciousness: patient oriented x3 Limitations: no limitations HEENT Head: Yes normal to inspection, Yes normocephalic and Yes atraumatic Ears: hearing grossly normal bilaterally and external ears normal Eyes General: appearance normal, both eyes and all related structures Eyelids: Yes eyelids normal Sclerae: sclerae normal EOM: EOMs intact bilaterally Neck Neck: Yes normal visual inspection and Yes no lymphadenopathy Lymphatic: no lymphadenopathy noted Chest Chest palpation & inspection: normal inspection of the chest Resp Effort & Inspection: normal respiratory effort, able to speak in complete sentences, no audible wheezes, no cough, no stridor, not tachypneic, no tripod positioning and no use of accessory muscles Auscultation: diminished lung sounds Cardio Jugular venous distension: no JVD Rate: regular rate Rhythm: regular rhythm Skin Other: warm, dry General skin exam: no rashes or lesions noted Neuro General: patient oriented x3 Cranial nerves: Yes Normal hearing present Cognition (Neuro): normal cognition Gait exam (Neuro): Normal gait present Extrem General: Yes normal to inspection, Yes capillary refill normal, Yes no clubbing, cyanosis or edema and Yes no pedal edema Psych Appearance: grossly normal and well kempt Speech and movement: Normal speech and movement present and Clear speech present Affect: normal affect Attitude: cooperative Thought process: Normal thought process present Thought content: Normal thought content present Insight: Good insight present (Psych) Judgement: Good judgement present (Psych) Results Reviewed Results Reviewed: Assessment & Plan Assessment & Plan (1) COPD (chronic obstructive pulmonary disease): Code(s): J44.9 - Chronic obstructive pulmonary disease, unspecified Category: Medical Qualifiers: COPD type: emphysema Emphysema type: other Qualified Code(s): J43.8 - Other emphysema (2) Pulmonary nodule: Code(s): R91.1 - Solitary pulmonary nodule Category: Medical (3) Nicotine dependence, cigarettes, uncomplicated: Code(s): F17.210 - Nicotine dependence, cigarettes, uncomplicated Category: Medical Plan Mercedez Blanco reports good control of respiratory symptoms on current regimen, advised to continue Symbicort 160mcg and albuterol MDI. She is aware to call if symptoms change. Smoking cessation reviewed and patient has had a 3 cigarettes over the last few months and motivated to continue to work towards quitting completely. Prior chest CT revealed stable LLL pulmonary nodule, 5 mm, scheduled for repeat in one year to assess stability, 04/2025. All questions were answered and patient is in agreement of plan. Will follow up in 3 months or sooner if needed. Medications: Refilled 2 albuterol sulfate 90 mcg/actuation (Ventolin HFA) 2 inhalations inhalation Q4H PRN 8.5 grams 3RF shortness of breath or wheezing budesonide-formoterol 160-4.5 mcg/actuation 2 puffs inhalation Q12H 10.2 ea 6RF Coding Level of Care Code Est Pt Level 4 (50719) Diagnoses Other emphysema J43.8 COPD type: emphysema Emphysema type: other Pulmonary nodule R91.1 Nicotine dependence, cigarettes, uncomplicated F17.210
[2025-02-10 11:47] VITALS: BP 108/70; PULSE 81; O2SAT 96; BMI 26.5
== END 2025-02-10 12:03 | disposition home or self-care (01) ==
LOC: HO.HPSW 11:42
PROVIDERS: PCP Internal Medicine; Visit Provider Nurse Practitioner Family
DX: J43.8 Other emphysema (principal); R91.1 Solitary pulmonary nodule; F17.210 Nicotine dependence, cigarettes, uncomplicated
CPT/HCPCS: 99214

== ENCOUNTER → 2025-02-10 11:41 | Outpatient (BNVA) | payer MEDICARE, BC, SELFPAY | PROVIDERS: PCP Internal Medicine; Visit Provider Nurse Practitioner Family | DX: R91.1 Solitary pulmonary nodule (principal); J43.8 Other emphysema; F17.210 Nicotine dependence, cigarettes, uncomplicated | CPT/HCPCS: 99212 ==

== ENCOUNTER 2025-03-11 08:20 | Outpatient (AMB) | payer MEDICARE, BC, SELFPAY ==
[2025-03-11 08:39] VITALS: BP 132/80; BMI 26.0
--- NOTE | 2025-03-11 08:39 | MHC.OFFVIS ---
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 Denies any vaginal dryness or irritation. STI testing offered; she declined. Attempting to eat a healthy diet with calcium and vitamin D and stays active with exercise-uses a bike 3x/wk. Last pap smear; negative history. Hysterectomy in 2015 for uterine prolapse. Last mammogram; 2024 . Colonoscopy is UTD. Personal (LCIS) and family history of breast cancer. [facility] Medical History History of breast cancer Hyperlipidemia Low back pain Neck pain COPD (chronic obstructive pulmonary disease) Surgical History History of neck surgery H/O colonoscopy (~2019) History of carpal tunnel surgery History of lumpectomy of right breast (~2010) History of hysterectomy (~2015) Family History Mother Breast cancer Father Diabetes Social History Household Members: None Housing: House Alcohol intake: current Alcohol intake frequency: a few times a month Patient Tobacco Use Status: Former Tobacco user Cigarettes Per Day: 10 Years Smoked: 50 e-Cigarette/Vaping Use: Never Used service: Yes Current occupational status: retired Cognitive needs: No Hearing needs: No Vision needs: No Female Reproductive History Menstrual Menopause type: surgical Total pregnancies: 1 Full term: 1 Number of Living Children: 1 Date of Mammogram: 01/21/25 (Birad 2) Review of Systems Const All systems reviewed & are unremarkable except as noted in HPI and below Reports as per HPI Eyes Reports no additional complaints ENT Reports no additional complaints Card Reports no additional complaints Resp Reports no additional complaints GI Reports as per HPI and Reports no additional complaints Reports as per HPI Musc Reports no additional complaints Skin/Breast Reports as per HPI Neuro Reports no additional complaints Psych Reports no additional complaints Endo Reports no additional complaints Yaniv/Lymph Reports no additional complaints Aller/Immun Reports no additional complaints Physical Exam Vital Signs: Last Vital Signs BP 132/80 03/11/25 08:39 BMI result Body Mass Index 26.0 Const General: cooperative, healthy appearing, no acute distress, well developed and alert Orientation/consciousness: patient oriented x3 HEENT Head: Yes normal to inspection Eyes General: appearance normal, both eyes and all related structures Neck Neck: Yes normal visual inspection Thyroid: Thyroid normal Chest Other: Bilateral implants, scarring Chest palpation & inspection: normal inspection of the chest and other (no puckering, dimpling, peau de orange, retraction, discharge, masses) Breast/axilla inspection: normal inspection of the breasts Breast/axilla palpation: normal palpation of the breasts Resp Effort & Inspection: normal respiratory effort GI Inspection: Yes normal to inspection Palpation (GI): Soft to palpation Rectal Exam - Female: deferred General: Yes bladder normal to palpation External Female Exam: normal external appearance and normal appearance of the urethra Speculum Exam - Vagina: normal appearance of the vagina, normal palpation, normal vaginal discharge and vagina atrophic Speculum Exam - Cervix: Cervix absent (Vaginal cuff no lesions or nodules) Bimanual exam- vagina & uterus: normal bimanual exam, normal palpation, bladder normal to palpation and uterus absent Bimanual Exam- Adnexa, other: no masses Skin General skin exam: no rashes or lesions noted Rashes: no rashes Neuro General: patient oriented x3 Cognition (Neuro): normal cognition Extrem General: Yes normal to inspection Psych Attitude: cooperative Thought process: Normal thought process present Assessment & Plan Assessment & Plan (1) Encounter for well woman exam with routine gynecological exam: Code(s): Z01.419 - Encounter for gynecological examination (general) (routine) without abnormal findings Category: Medical Plan Discussed: Current recommendations for pap smears per ASCCP guidelines. Breast awareness, periodic self breast exams and yearly mammogram. Maintain a healthy lifestyle, well balanced diet including Calcium 1,200 mg and Vitamin D 600 IU daily, and routine exercise. [id number] self-help moisturizers for vulvar dryness reviewed. Patient verbalizes understanding and agrees to the plan of care. She was given opportunity to ask questions and all questions were answered to the best of my ability. RTO in 1 year for annual analytical sciences director exam. This note is constructed using voice recognition software. While every effort has been made to ensure accuracy, senior medical transcriptionist errors may have been included. Coding Level of Care Code New Pt Prev Care 40-64y(07158) Diagnoses Encounter for well woman exam with routine gynecological exam Z01.419
== END 2025-03-11 09:24 | disposition home or self-care (01) ==
LOC: HO.HWS 08:21
PROVIDERS: PCP Internal Medicine; Visit Provider Advanced Practice Midwife
DX: Z01.419 Encounter for gynecological examination (general) (routine) without abnormal findings (principal)
CPT/HCPCS: 99386; 99459

== ENCOUNTER → 2025-03-11 08:20 | Outpatient (BNVA) | payer MEDICARE, BC, SELFPAY | PROVIDERS: PCP Internal Medicine; Visit Provider Advanced Practice Midwife | DX: Z01.419 Encounter for gynecological examination (general) (routine) without abnormal findings (principal); Z90.710 Acquired absence of both cervix and uterus | CPT/HCPCS: 99386 ==

== ENCOUNTER 2025-04-29 11:44 | Outpatient (REF) | payer MEDICARE, BC, SELFPAY ==
--- NOTE | ~2025-04-29 | CT_ITS ---
EXAMINATION: CT CHEST WITHOUT IV CONTRAST INDICATION: F17.210 - Nicotine dependence, cigarettes, uncomplicated COMPARISON: Comparison is made to prior examinations dated 05/09/2024 and 04/25/2023. TECHNIQUE: Helical CT scan of the chest was performed without intravenous contrast. Coronal and sagittal reformatted images were generated and reviewed. This CT exam was performed with one or more of the following dose reduction techniques: automated exposure control, adjustment of the mA and/or kV according to patient size, use of iterative reconstruction technique. DLP: 114 mGy-cm CHEST: THYROID: The thyroid is unremarkable. LUNGS: There is mild emphysema. There is a 7 x 3 mm nodule in the left costophrenic angle (series 5, image 127) without change. No new pulmonary nodules are identified. MEDIASTINUM: There is no mediastinal lymphadenopathy. KARAN: Evaluation of the hilar regions is limited by lack of intravenous contrast material. CARDIOVASCULATURE: The heart is normal in size. There is no pericardial effusion. 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 DEGREE OF CORONARY CALCIFICATION: none PLEURA: There is no pleural effusion. No pneumothorax. MAIN AIRWAYS: The mainstem bronchi and proximal branches are patent. AXILLA: There is no axillary lymphadenopathy. BONES AND SOFT TISSUES: Bilateral breast implants are again noted. There is degenerative disc disease of the spine. UPPER ABDOMEN: The visualized portions of the liver, spleen, and adrenals have an unremarkable unenhanced appearance. CT/CT chest wo IV con IMPRESSION: 1. Stable 7 x 3 mm nodule in the left costophrenic angle. 2. Mild emphysema. Because mild emphysema is an independent risk factor for lung cancer, consider entering the patient into a program of yearly lung cancer screening with low dose chest CT. Electronically signed by: Walter Cuellar MD 04/29/2025 12:26 PM [facility]
== END 2025-04-29 11:45 | disposition home or self-care (01) ==
LOC: HO.CT 11:44
PROVIDERS: PCP Internal Medicine; Visit Provider Nurse Practitioner Family
DX: R91.1 Solitary pulmonary nodule (principal); F17.210 Nicotine dependence, cigarettes, uncomplicated
CPT/HCPCS: 71250

== ENCOUNTER → 2025-04-29 11:46 | Outpatient (BNV) | payer MEDICARE, BC, SELFPAY | PROVIDERS: PCP Internal Medicine; Visit Provider Radiology Diagnostic Radiology | DX: J43.9 Emphysema, unspecified (principal); R91.1 Solitary pulmonary nodule | CPT/HCPCS: 71250 ==